=== PATIENT | male | born 1980 | race African-American/Black ===

== ENCOUNTER 2017-04-14 08:49 | Emergency (ER) | payer SELFPAY ==
[2017-04-14 08:50] VITALS: BP 128/79; PULSE 81; RESP 16; TEMP 98.2; O2SAT 98
--- NOTE | 2017-04-14 09:25 | PD ---
HPI Chief Complaint: Skin Problem Time Seen by Provider: 09:24 Travel History International Travel<30 days: No Contact w/Intl Traveler<30days: No Traveled to known affect area: No History of Present Illness HPI 36-year-old male presents to the emergency Department with complaint of when he scratches his skin he gets "wheals" that has been occurring for 1 year. Denies current rash. Denies fever, vomiting. Denies new lotions, soaps, perfumes, medications, foods, environmental exposures. Denies airway edema, difficulty breathing, shortness of breath. Patient is requesting lab draw. Has not taken any medications or tried any treatments to alleviate his symptoms. Has no other medical complaints. No known allergies. No other modifying factors or associated signs and symptoms. History Past Medical Histgory Medical History: Denies Significant Hx Past Surgical History Surgical History: No Previous Surgery Social History Alcohol Use: No Tobacco Use: No Allergies-Medications (Allergen,Severity, Reaction): Coded Allergies: No Known Allergies (Unverified , 04/14/17) Reported Meds & Prescriptions Reported Meds & Active Scripts Active No Active Prescriptions or Reported Medications Review of Systems Except as stated in HPI: all other systems reviewed are Neg Physical Exam Narrative GENERAL: Well-nourished, well-developed male patient, in no acute distress; afebrile, nontoxic-appearing SKIN: Warm and dry. No rash noted. HEAD: Atraumatic. Normocephalic. EYES: Pupils equal and round. No scleral icterus. No injection or drainage. ENT: Mucosa pink and moist. Airway patent. NECK: Trachea midline. CARDIOVASCULAR: Regular rate and rhythm. No murmur appreciated. RESPIRATORY: No accessory muscle use. Clear to auscultation. Breath sounds equal bilaterally. GASTROINTESTINAL: Abdomen soft, non-tender, nondistended. Hepatic and splenic margins not palpable. Bowel sounds are active 4 quadrants. MUSCULOSKELETAL: No obvious deformities. No clubbing. No cyanosis. No edema. NEUROLOGICAL: Awake and alert. Oriented 3. No obvious cranial nerve deficits. Motor grossly within normal limits. Normal speech. PSYCHIATRIC: Appropriate mood and affect; insight and judgment normal. Data Data Last Documented VS Vital Signs Date Time Temp Pulse Resp B/P Pulse Ox O2 Delivery O2 Flow Rate FiO2 04/14/17 08:50 98.2 81 16 128/79 98 MDM Medical Screen Exam Complete: Yes Emergency Medical Condition: No Differential Diagnosis Rash, nonspecific skin eruption, allergies, medical clearance Narrative Course 36-year-old male complaining of development of "wheals" when he scratches his skin. Denies current rash and no rash noted on physical exam. The patient is afebrile and nontoxic-appearing. Physical exam is unremarkable. Instructed patient to follow up with [facility]. Instructed patient to follow up with dermatology. Vital signs are stable and the patient is stable for outpatient follow-up and treatment. The patient has no urgent or emergent medical complaints. There is no emergent or urgent medical need at this time. I instructed the patient to follow up with their primary care provider. A medical screening exam was performed: At the time of evaluation the presenting medical condition was determined not to be of an emergent nature. The patient was given the option of receiving additional care, but declined. Patient was given options for additional community resources from which to obtain care. The Patient Has Been advised to seek medical attention for their presenting complaint. The patient has been advised to return to the ER at any time if an emergent condition develops. Primary Impression: Encounter for medical screening examination Scripts No Active Prescriptions or Reported Meds Condition: Stable Milly Flores Apr 14, 2017 09:25
== END 2017-04-14 09:54 | disposition left against medical advice (07) ==
LOC: NEPK 08:49
DX: L50.9 Urticaria, unspecified (principal)
CPT/HCPCS: 99281